=== PATIENT | female | born 1980 | race African-American/Black ===

== ENCOUNTER 2020-07-30 19:33 | Emergency (ER) | payer OTHER ==
[2020-07-30 19:48] VITALS: TEMP 98.6; BMI 22.8
[2020-07-30] MEDS ORDERED: ACETAMINOPHEN 325 MG TABLET (FP) PO ONE (20:47)
[2020-07-30] MEDS ORDERED: ACETAMINOPHEN 325 MG TABLET (FP) ONE (21:10)
[2020-07-30 21:55] LABS: EPI CELLS 10 /uL (0-25.1); HYALINE CASTS 11 /uL (0-3.1); URINE APPEARANCE CLOUDY; URINE BACTERIA 1881 /uL (0-1359); URINE BILIRUBIN NEGATIVE (NEGATIVE); URINE COLOR YELLOW; URINE GLUCOSE (UA) NEGATIVE (NEGATIVE); URINE KETONE 2+ (NEGATIVE); URINE LEUK ESTERASE 2+ (NEGATIVE); URINE NITRITE POSITIVE (NEGATIVE); URINE PROTEIN 1+ (NEGATIVE); URINE RBC 151 /uL (0-23.9); URINE UROBILINOGEN 0.2 mg/dL (0.2-1.0); URINE WBC 286 /uL (0-25.8)
[2020-07-30] MEDS ORDERED: CEPHALEXIN MONOHYDRATE 500 MG CAPSULE (UD) PO ONE (22:04)
[2020-07-30] MEDS ORDERED: CEPHALEXIN MONOHYDRATE 500 MG CAPSULE (UD) ONE (22:44)
[2020-07-30 22:46] VITALS: BP 108/62; PULSE 92
== END 2020-07-30 23:45 | disposition home or self-care (01) ==
LOC: JER 19:33
DX: R30.0 Dysuria (principal); N39.0 Urinary tract infection, site not specified
CPT/HCPCS: 81003; 84703; 87086; 87186; 99283-25

== ENCOUNTER 2020-07-31 06:23 | Day surgery (SDC) | payer OTHER ==
[2020-07-31 08:03] VITALS: BMI 22.8
[2020-07-31] MEDS ORDERED: MIDAZOLAM HCL 2 MG/2 ML SINGLE DOSE VIAL ONE (10:06)
[2020-07-31] MEDS ORDERED: PROPOFOL 20 ML ONE (10:06)
[2020-07-31] MEDS ORDERED: DEXAMETHASONE SOD PHOSPHATE 4 MG/1 ML VIAL ONE (10:27)
[2020-07-31] MEDS ORDERED: KETOROLAC TROMETHAMINE 30 MG/1 ML VIAL ONE (10:27)
[2020-07-31] MEDS ORDERED: ceFAZolin SODIUM 1 GM VIAL ONE (10:27)
[2020-07-31] MEDS ORDERED: ONDANSETRON 4 MG/2 ML VIAL IVPUSH PRN (10:54)
[2020-07-31] MEDS ORDERED: oxyCODONE HCL 5 MG TABLET PO PRN (10:54)
[2020-07-31] MEDS ORDERED: LACTATED RINGERS SOLUTION 1,000 ML IV SCH (11:00)
[2020-07-31 12:15] VITALS: TEMP 97.1
[2020-07-31 14:48] VITALS: BP 103/70; PULSE 88
== END 2020-07-31 14:30 | disposition home or self-care (01) ==
LOC: JASU-SURG 06:23
PROVIDERS: ATTEND Urology
PROC: 0T768DZ Dilation of Right Ureter with Intraluminal Device, Via Natural or Artificial Opening Endoscopic (ICD-10-PCS; principal; 2020-07-31 10:00)
PROC: 0TP98DZ Removal of Intraluminal Device from Ureter, Via Natural or Artificial Opening Endoscopic (ICD-10-PCS; 2020-07-31 10:00)
PROC: BT1DYZZ Fluoroscopy of Right Kidney, Ureter and Bladder using Other Contrast (ICD-10-PCS; 2020-07-31 10:00)
DX: N20.1 Calculus of ureter (principal)
CPT/HCPCS: 94760